=== PATIENT | female | born 1955 | race Caucasian/White ===

== ENCOUNTER → 2023-08-18 | Outpatient (CLI) | payer MEDICARE, BC ==
[2023-08-23 08:47] LABS: HPV HIGH RISK BY TMA Not Detected; HPV SOURCE Cervical
== END ==
LOC: LAB 09:16 → LAB SHORT 09:16
PROVIDERS: Advanced Practice Midwife
DX: Z01.419 Encounter for gynecological examination (general) (routine) without abnormal findings (principal)
CPT/HCPCS: 87624; G0123